=== PATIENT | male | born 1995 | race Caucasian/White ===

== ENCOUNTER 2022-06-26 15:39 | Emergency (ER) | payer BC, SELFPAY ==
[2022-06-26 16:13] VITALS: BP 142/89; PULSE 68; RESP 18; TEMP 36.3; O2SAT 99
--- NOTE | 2022-06-26 22:50 | ED.GENADULT ---
HPI - General Adult General Chief complaint: Upper Respiratory Infection Stated complaint: Sore Throat,Bilateral Ear Irritation History of Present Illness HPI narrative: 27 y/o male. PMHx Non-contributory. Presents to [facility] clinic today with acute complaints of sore throat and bilateral ear pain, ongoing for > 4 days. No fevers, neck pain. No chest congestion, cough, dyspnea. No chest pain. No N/V. Related Data Home Medications Medication Instructions Recorded Confirmed testosterone cypionate 200 mg/mL 200 mg IM WEEKLY 08/08/21 06/26/22 intramuscular oil Allergies Allergy/AdvReac Type Severity Reaction Status Date / Time amoxicillin Allergy Severe Rash Verified 06/26/22 16:19 Penicillins Allergy Severe Rash Verified 06/26/22 16:19 Sulfa (Sulfonamide Allergy Severe Rash Verified 06/26/22 16:19 Antibiotics) Review of Systems Review of Systems: All systems reviewed & are unremarkable except as noted in HPI & Below: HENT: Bilateral ear pain. Sore throat. PMFSH Past Medical History Medical History [id number] transgender person Surgical History Surgical History H/O mastectomy H/O tympanostomy H/O vaginal surgery History of adenoidectomy History of hysterectomy with oophorectomy Social History Social History (Updated 04/24/22 @ 15:13 by Calli Bedolla [facility]) Smoking status: Never smoker Second hand tobacco smoke exposure: No Alcohol intake: current Drinks per week: 1 Substance use: never Substance use type: does not use Gender identity (if verbalized by the patient): Male Spiritual care concerns: No Agree to blood products: Yes Exam Narrative: GENERAL: This is a well-nourished, well-developed adult, in no apparent distress. HEAD: normocephalic, atraumatic. EYES: PERRL. Sclera clear/white. EARS: External ears normal, Bilateral canals are erythematous with moderate yellow and serosanguineous discharge. TMS bulging bilateral. No obstruction. Positive tragus maneuver. Hearing grossly intact. NOSE: External nose normal. Positive Rhinorrhea, no obstruction, nares patent. THROAT: Mucous membranes moist, posterior pharynx erythematous. No exudates. NECK: Neck supple, non-tender without lymphadenopathy, masses or thyromegaly. CARDIOVASCULAR: Regular rate and rhythm without murmurs, gallops, or rubs. RESPIRATORY: Clear to auscultation. Breath sounds equal bilaterally. No wheezes, rales, or rhonchi. GASTROINTESTINAL: Abdomen soft, non-tender, nondistended. Bowel sounds are active. No guarding. SKIN: warm, intact with no suspicious lesions or rash, good texture and turgor. NEURO: Alert, active, and age appropriate. No focal neurologic deficits. EXTREMITIES: Negative. Course Course Level of Care: Express Care Visit Vital Signs Vital signs: Vital Signs Temperature 36.3 C L 06/26/22 16:13 Pulse Rate 68 06/26/22 16:13 Respiratory Rate 18 06/26/22 16:13 Blood Pressure 142/89 H 06/26/22 16:13 Pulse Oximetry 99 06/26/22 16:13 Oxygen Delivery Room Air 06/26/22 16:13 Temperature 36.3 C L 06/26/22 16:13 Pulse Rate 68 06/26/22 16:13 Respiratory Rate 18 06/26/22 16:13 Blood Pressure 142/89 H 06/26/22 16:13 Pulse Oximetry 99 06/26/22 16:13 Oxygen Delivery Room Air 06/26/22 16:13 Medical Decision Making Differential Diagnosis Differential Diagnosis: Differential Diagnosis: Consideration of the following conditions may be warranted for the presenting problem, they are not final diagnoses: upper respiratory infection, otitis media, sinusitis, RSV viral infection, PNA, bronchitis, pharyngitis, Streptococcal sore throat, COVID-19, Influenza, and other. Vital Signs Vital Signs: Vital Signs Temperature 36.3 C L 06/26/22 16:13 Pulse Rate 68 06/26/22 16:13 Respiratory Rate 18 06/26/22 16:13 Blood Pressure 142/89 H 06/26/22 16:13 Pulse Oximetry 99 06/15
== END 2022-06-26 16:55 | disposition home or self-care (01) ==
PROVIDERS: Emergency Provider Nurse Practitioner Adult Health; PCP Family Medicine
DX: J06.9 Acute upper respiratory infection, unspecified (principal); H66.93 Otitis media, unspecified, bilateral
CPT/HCPCS: 87081; 87880; 99213; G0463